=== PATIENT | male | born 1960 | race African-American/Black ===

== ENCOUNTER 2019-01-03 14:37 | Emergency (ER) | payer OTHER ==
[~2019-01-03] VITALS: Ht 190.5 cm; Wt 93.6 kg
[2019-01-03 15:08] VITALS: Ht 190.5 cm; Wt 93.6 kg
[2019-01-03] MEDS ORDERED: HYDROCODON-ACE1 EAC7 PO (15:10)
[2019-01-03] MEDS ORDERED: GLUCOPHAGE1000 MG PO (15:11)
[2019-01-03] MEDS ORDERED: LANTUS SOL100 UNIT/1 SC (15:12)
[2019-01-03] MEDS ORDERED: LISINOPRIL5 MG PO (15:12)
[2019-01-03] MEDS ORDERED: HUMALOG MIX 75/23 ML SC (15:12)
[2019-01-03] MEDS ORDERED: MYORISAN PO (15:13)
[2019-01-03] MEDS ORDERED: TYLENOL ARTHRI650 MG PO (16:26)
[2019-01-03 17:19] VITALS: BP 137/90
== END 2019-01-03 18:23 | disposition home or self-care (01) ==
LOC: D.ER 14:37
DX: S09.90XA Unspecified injury of head, initial encounter (principal); W22.8XXA Striking against or struck by other objects, initial encounter; Y93.89 Activity, other specified; Y92.89 Other specified places as the place of occurrence of the external cause; R51 Headache; F07.81 Postconcussional syndrome